=== PATIENT | female | born 1965 | race Caucasian/White ===

== ENCOUNTER 2019-08-09 09:11 | Outpatient (CLI) | payer OTHER, SELFPAY ==
--- NOTE | ~2019-08-09 | MM_ITS ---
EXAMINATION: MM screening gerardo BI w kishore HISTORY: Screening mammogram TECHNIQUE: Craniocaudal and mediolateral oblique 3-D tomosynthesis images were obtained and synthetic 2-D images were generated. CAD analysis was submitted and interpreted. COMPARISON: Comparison to multiple prior studies sequentially, with oldest reviewed study dated 09/02. BREAST PARENCHYMAL COMPOSITION: There are scattered areas of fibroglandular density. FINDINGS: There is no evidence of suspicious mass, calcification, or architectural distortion to sugg est malignancy in either breast. There has been no suspicious interval change. IMPRESSION: 1. No mammographic evidence of malignancy. 2. Recommend routine screening mammography in one year. BI-RADS Category 1: Negative Reviewed, dictated and finalized at location A. CHARGER
== END 2019-08-09 09:12 | disposition home or self-care (01) ==
PROVIDERS: PCP Family Medicine; Visit Provider Obstetrics & Gynecology
DX: Z12.31 Encounter for screening mammogram for malignant neoplasm of breast (principal)
CPT/HCPCS: 77063; 77067

== ENCOUNTER 2020-04-06 00:45 | Outpatient (CLI) | payer OTHER, SELFPAY ==
[2020-04-06 18:04] LABS: SARS-CoV-2 RNA PCR Negative
== END 2020-04-06 00:46 | disposition home or self-care (01) ==
LOC: ANHCOVIDDT 00:45
PROVIDERS: Visit Provider Internal Medicine Gastroenterology
DX: Z01.812 Encounter for preprocedural laboratory examination (principal); Z20.828 Contact with and (suspected) exposure to other viral communicable diseases
CPT/HCPCS: 87635; C9803; U0003

== ENCOUNTER 2020-04-09 00:41 | Day surgery (SDC) | payer OTHER, SELFPAY ==
[2020-04-01 13:12] VITALS: BMI 25.7
[2020-04-09 06:28] VITALS: BP 127/75; PULSE 90; RESP 14; TEMP 36.9; O2SAT 100; BMI 27.0
[2020-04-09] MEDS: LACTATED RINGERS 1,000 ML 150 ML IV CONT (06:42)
--- NOTE | 2020-04-09 07:03 | PM.HPGS ---
History of Present Illness History of Present Illness Consent: Risks, benefits, and alternatives have been discussed and questions answered. Patient agrees to proceed with procedure. Chief complaint: epigastric pain Narrative: Chey Llamas is a 54 year old female With epigastric pain. It radiates to the right upper quadrant. It has been intermittent but now for the past 2 weeks almost steady. Eating briefly helps. She had multiple ulcers a few years ago. [facility] Past Medical History Medical History (Updated 04/09/20 @ 07:23 by Rico Anderson MD) Asthma DVT (deep venous thrombosis) GERD (gastroesophageal reflux disease) BEAU (obstructive sleep apnea) Osteoarthritis Surgical History Surgical History History of spinal fusion neck and back Family History Family History Mother Family history of malignant neoplasm of breast in first degree relative Social History Social History Smoking packs per day: 0.5 Smoking cigarettes per day: 10.0 Years smoked: 30 Smoking pack-years: 15.00 Smoking status: Current every day smoker Tobacco type: cigarettes Second hand tobacco smoke exposure: Yes Alcohol intake: never Substance use: never Substance use type: does not use Living arrangements: with family Spiritual care concerns: No Meds Home Medications and Allergies Home Medications Medication Instructions Recorded Confirmed Type albuterol sulfate 2 puff INHALATION Q3-6H PRN 05/19/19 04/09/20 History bupropion HCl 300 mg PO DAILY 05/19/19 04/09/20 History dicyclomine 20 mg PO TID PRN 05/19/19 04/09/20 History ergocalciferol (vitamin D2) 1 unit PO WEEKLY 05/19/19 04/09/20 History omeprazole 20 mg PO AC 05/19/19 04/09/20 History valacyclovir 1,000 mg PO DAILY PRN 05/19/19 04/09/20 History Allergies Allergy/AdvReac Type Severity Reaction Status Date / Time Cephalosporins Allergy Mild Hives Verified 04/09/20 06:27 Vital Signs Vital Signs - 24 hr 04/09/20 06:28 Temperature 36.9 C Pulse Rate 90 Respiratory Rate 14 Blood Pressure 127/75 Pulse Oximetry 100 Exam Resp: Auscultation: clear to auscultation bilaterally Cardio: Rate: regular rate Rhythm: regular rhythm GI: GI Palp: Yes Soft to palpation and No Tenderness to palpation present (GI) Assessment and Plan Assessment and plan (1) Epigastric pain: Code(s): R10.13 - Epigastric pain Status: Acute Assessment and Plan: EGD with possible biopsy or dilatation or cautery.
--- NOTE | 2020-04-09 07:11 | WPDANESEPPF ---
Anes - Initial Pre Proc Eval Procedure: Operation Date: 04/09/20 07:30 Proposed Procedures p Esophagogastroduodenoscopy - Rico Anderson MD Date/Time: 04/09/20 07:11 Surgeon: Rico Anderson MD Pre Op Diagnosis: epigastric pain Patient Data Age: 54 Gender: F Height: 5 ft 3 in Weight: 69.3 kg Last Vital Signs Temp 98.4 F 04/09/20 06:28 Pulse 90 04/09/20 06:28 Resp 14 04/09/20 06:28 BP 127/75 04/09/20 06:28 Pulse Ox 100 04/09/20 06:28 Allergies Allergy/AdvReac Type Severity Reaction Status Date / Time Cephalosporins Allergy Mild Hives Verified 04/09/20 06:27 Home Medications Medication Instructions Recorded Confirmed Type albuterol sulfate 2 puff INHALATION Q3-6H PRN 05/19/19 04/09/20 History bupropion HCl 300 mg PO DAILY 05/19/19 04/09/20 History dicyclomine 20 mg PO TID PRN 05/19/19 04/09/20 History ergocalciferol (vitamin D2) 1 unit PO WEEKLY 05/19/19 04/09/20 History omeprazole 20 mg PO AC 05/19/19 04/09/20 History valacyclovir 1,000 mg PO DAILY PRN 05/19/19 04/09/20 History Patient hx anesthesia problems: none Family hx anesthesia problems: none PMFSH Past Medical History Medical History Asthma DVT (deep venous thrombosis) GERD (gastroesophageal reflux disease) BEAU (obstructive sleep apnea) Osteoarthritis Surgical History Surgical History (Updated 05/24/19 @ 08:28 by Lee Call DO) History of spinal fusion neck and back Family History Family History Mother Family history of malignant neoplasm of breast in first degree relative Social History Social History Smoking packs per day: 0.5 Smoking cigarettes per day: 10.0 Years smoked: 30 Smoking pack-years: 15.00 Smoking status: Current every day smoker Tobacco type: cigarettes Second hand tobacco smoke exposure: Yes Alcohol intake: never Substance use: never Substance use type: does not use Living arrangements: with family Spiritual care concerns: No Anes - Eval Final PreProcedure Day of Procedure 04/09/20 07:11 Patient weight: normal Heart: regular rate and rhythm Lungs: clear to auscultation Airway: Mallampati scale class II Neurological: alert and oriented Last oral intake: >/= 8 hours ASA classification: III Emergent: no Anesthetic plan: proceed Anesthesia type and monitoring: general GIVS and standard monitoring Informed Consent: The patient's anesthetic plan and its attendant risks and benefits were discussed with the patient/family/POA. Questions were solicited and answers provided to the satisfaction of the patient/family/POA.
[2020-04-09 07:37] VITALS: BP 94/48; PULSE 79; RESP 16; O2SAT 97
[2020-04-09 07:47] VITALS: BP 87/49; PULSE 74; RESP 16; O2SAT 99
[2020-04-09 07:57] VITALS: BP 99/57; PULSE 76; RESP 20; O2SAT 100
== END 2020-04-09 08:21 | disposition home or self-care (01) ==
PROVIDERS: Visit Provider Internal Medicine Gastroenterology
PROC: 0DJ08ZZ Inspection of Upper Intestinal Tract, Via Natural or Artificial Opening Endoscopic (ICD-10-PCS; CPT 43235; principal; 2020-04-09 07:30)
DX: K21.9 Gastro-esophageal reflux disease without esophagitis (principal); J45.909 Unspecified asthma, uncomplicated; G47.33 Obstructive sleep apnea (adult) (pediatric); Z86.718 Personal history of other venous thrombosis and embolism; Z98.1 Arthrodesis status; F17.210 Nicotine dependence, cigarettes, uncomplicated
CPT/HCPCS: 43239; 87081; J2704; J7120

== ENCOUNTER 2023-03-12 08:56 | Outpatient (CLI) | payer OTHER, SELFPAY ==
[2023-03-12 09:28] LABS: Basophils Absolute Auto 0.06 K/mm3 (0.00-0.10); Eosinophils Absolute Auto 0.31 K/mm3 (0.02-0.50); Eosinophils Percent Auto 4.9 % (1.0-6.0); Hematocrit 39.5 % (35.0-49.0); Hemoglobin 13.2 g/dL (12.0-15.0); Immature Granulocyte Absolute 0.02 K/mm3 (0.00-0.00); Immature Granulocyte Percent A 0.3 % (0.0-0.0); Lymphocytes Absolute Auto 2.08 K/mm3 (1.10-4.50); Lymphocytes Percent Auto 33.2 % (18.0-42.0); Mean Corpuscular HGB Conc 33.4 g/dL (32.0-36.0); Mean Corpuscular Hemoglobin 31.2 pg (27.0-31.0); Mean Corpuscular Volume 93.4 fL (78.0-102.0); Mean Platelet Volume 10.7 fl (9.2-11.8); Monocytes Absolute Auto 0.53 K/mm3 (0.10-0.90); Monocytes Percent Auto 8.5 % (2.0-11.0); Neutrophils Absolute Auto 3.3 K/mm3 (1.7-7.2); Neutrophils Percent Auto 52.1 % (50.0-70.0); Platelet Count Result 288 K/mm3 (150-420); Red Blood Count 4.23 M/mm3 (4.20-5.40); Red Cell Distribution Width 13.2 % (11.6-14.4); White Blood Count 6.3 K/mm3 (4.8-10.8)
[2023-03-12 09:29] LABS: Appearance Urine Clear (Clear); Bilirubin Urine Negative (Negative); Blood Urine 1+ (Negative); Color Urine Yellow (Yellow); Glucose Urine UA Negative (Negative); Ketones Urine Negative (Negative); Leukocyte Esterase Ur Negative LEU/UL (Negative); Nitrate Urine Negative (Negative); Protein Urine Trace (Negative); Urobilinogen Urine 0.2 mg/dL (0.2-1.0)
[2023-03-12 09:43] LABS: Add Urine Microscopic? YES; Bacteria Urine Trace /hpf; Mucus Urine Few /lpf; Squamous Epithelial Cell Urine Few /hpf (Few); WBC Urine None seen /hpf (0-3)
[2023-03-12 09:50] LABS: Alanine Aminotransferase 15 U/L (14-59); Albumin Level 3.9 g/dL (3.4-5.0); Alkaline Phosphatase 107 U/L (46-116); Anion Gap 7 mmol/L (8-16); Aspartate Amino Transferase 13 U/L (15-37); Bilirubin,Total 0.4 mg/dL (0.00-1.00); Blood Urea Nitrogen 9 mg/dL (7-18); Calcium 9.7 mg/dL (8.5-10.1); Carbon Dioxide 31 mmol/L (21-32); Chloride 105 mmol/L (98-108); Cholesterol 241 mg/dL (0-200); Estimated Glomerular Filt Rate > 60; Glucose 91 mg/dL (70-99); HDL Direct 69 mg/dL (40-60); LDL Cholesterol Calculated 145 mg/dL (<130); Osmolality Calculated 294 mOsm/kg (285-295); Potassium 4.5 mmol/L (3.5-5.1); Sodium 143 mmol/L (136-145); Thyroid Stimulating Hormone 3.71 uIU/mL (0.36-3.74); Total Protein 7.2 g/dL (6.4-8.2); Triglycerides 135 mg/dL (0-150)
== END 2023-03-12 08:57 | disposition home or self-care (01) ==
LOC: CHSLAB 08:58
PROVIDERS: PCP Internal Medicine; Visit Provider Internal Medicine
DX: Z00.00 Encounter for general adult medical examination without abnormal findings (principal); E78.5 Hyperlipidemia, unspecified; M81.0 Age-related osteoporosis without current pathological fracture
CPT/HCPCS: 36415; 80053; 80061; 81001; 84443; 85025

== ENCOUNTER 2023-04-13 10:34 | Outpatient (CLI) | payer OTHER, SELFPAY ==
[2023-04-13 11:09] LABS: Appearance Urine Clear (Clear); Bilirubin Urine Negative (Negative); Blood Urine Trace-Intact (Negative); Color Urine Yellow (Yellow); Glucose Urine UA Negative (Negative); Ketones Urine Negative (Negative); Leukocyte Esterase Ur Negative (Negative); Nitrate Urine Negative (Negative); Protein Urine Negative (Negative); Specific Grav Ur <= 1.005 (1.010-1.020); Urobilinogen Urine 0.2 mg/dL (0.2-1.0)
[2023-04-13 11:16] LABS: Add Urine Microscopic? YES; Bacteria Urine Trace /hpf; Squamous Epithelial Cell Urine Few /hpf (Few); WBC Urine 0-3 /hpf (0-3)
[2023-04-16 11:59] LABS: Vitamin D 25 Hydroxy 20 ng/mL (30-100)
[2023-04-17 11:10] LABS: Vitamin D 1,25 (OH)2 Total 37 pg/mL (18-72); Vitamin D2 1,25 (OH)2 <8 pg/mL; Vitamin D3 1,25 (OH)2 37 pg/mL
[2023-04-17 19:04] LABS: Parathyroid Intact 60 pg/mL (14-64)
== END 2023-04-13 10:35 | disposition home or self-care (01) ==
LOC: CHSLAB 10:36
PROVIDERS: PCP Internal Medicine; Visit Provider Internal Medicine
DX: E55.9 Vitamin D deficiency, unspecified (principal); R31.29 Other microscopic hematuria
CPT/HCPCS: 36415; 81001; 82306; 82652; 83970; 88112

== ENCOUNTER 2023-04-14 09:47 | Outpatient (CLI) | payer OTHER, SELFPAY ==
--- NOTE | ~2023-04-14 | CT_ITS ---
EXAMINATION: CT abdomen pelvis wo con DATE: 04/14/2023 10:07 INDICATION: Chronic abdominal pain. Hematuria. TECHNIQUE: Computed tomography (CT) of the abdomen and pelvis was performed without intravenous contr ast. Automated exposure control and iterative reconstruction technique were employed. The dose-length product was 158.80 mGy-cm. COMPARISON: CT abdomen and pelvis 11/30/2018 FINDINGS: The visualized portions of the lung bases are clear without pneumonia or pleural effusion. The heart size is normal. No pericardial effusion. The liver and spleen are normal. There are changes of cholecystectomy. The pancreas, adrenal glands, and kidneys are normal. There is no urolithiasis. There are no dilated loops of bowel. The appendix is normal. Aortic atherosclerosis is noted. There a re no pathologically enlarged lymph nodes. There is no free intraperitoneal fluid. There is internal fixation of right femur. There is mild lumbar spondylosis. IMPRESSION: 1. No urolithiasis. Reviewed, dictated and finalized at location E. IMPRESSION: 1. No urolithiasis.
== END 2023-04-14 09:48 | disposition home or self-care (01) ==
LOC: CHSIMG 09:49
PROVIDERS: PCP Internal Medicine; Visit Provider Internal Medicine
DX: R31.29 Other microscopic hematuria (principal)
CPT/HCPCS: 74176

== ENCOUNTER 2023-04-28 12:20 | Outpatient (CLI) | payer OTHER, SELFPAY ==
--- NOTE | ~2023-04-28 | MMUS_ITS ---
EXAMINATION: MM diagnostic gerardo BI w kishore, US breast LT limited HISTORY: Bloody left nipple discharge TECHNIQUE: Additional 3-D tomosynthesis images of the breasts were performed and synthetic 2-D images were generated. CAD analysis was submitted and interpreted. High resolution limited left breast ultr asound was performed. COMPARISON: 08/09/2019, 10/24/2014, 09/02/2012, 08/30/2008 BREAST PARENCHYMAL COMPOSITION: There are scattered areas of fibroglandular density. FINDINGS: MAMMOGRAPHIC FINDINGS: No suspicious mass, calcification, or architectural distortion are identified in either breast to sug gest malignancy. There has been no suspicious interval change. No mammographic correlate is identifie d in the left breast for the patient's nipple discharge. ULTRASOUND: No sonographic correlate is identified for the patient's reported left nipple discharge. IMPRESSION: 1. No specific mammographic or sonographic correlate is identified for the patient's left nipple disc harge. Consider surgical evaluation. Continued follow-up physical examination is recommended. 2. Recommend routine screening mammography in one year. BI-RADS Category 1: Negative Reviewed, dictated and finalized at location A. [employer] IMPRESSION: 1. No specific mammographic or sonographic correlate is identified for the tyler ent's left nipple discharge. Consider surgical evaluation. Continued follow-up physical examination is recommended. 2. Recommend routine screening mammography in one year. BI-RADS Category 1: Negative
== END 2023-04-28 12:21 | disposition home or self-care (01) ==
LOC: ANHIMG 12:21
PROVIDERS: PCP Internal Medicine; Visit Provider Nurse Practitioner
DX: N64.52 Nipple discharge (principal)
CPT/HCPCS: 76642; 77062; 77066; G0279

== ENCOUNTER 2023-08-04 15:11 | Emergency (ER) | payer OTHER, SELFPAY ==
[2023-08-04 15:23] VITALS: BP 150/70; PULSE 110; RESP 18; TEMP 37.1; O2SAT 97
[2023-08-04 15:24] VITALS: BP 150/70; PULSE 110; RESP 18; TEMP 37.1; O2SAT 97
--- NOTE | 2023-08-04 15:26 | ED.URI ---
HPI - URI/Sore Throat General Chief Complaint: Upper Respiratory Infection Stated Complaint: throat discomfort Time Seen by Provider: 08/04/23 15:26 History of Present Illness HPI Narrative: 58-year-old female presented for complaint of sore throat x6 days. States she went to the ER at that time, was told she had a viral infection. Since then she gargled warm salt water and it improved for one day, but worsened again yesterday. Endorses painful swallow but is able to maintain secretions. Right side of throat is more painful than left. Endorses nausea and body aches. Not taking anything for pain. Denies sob, wheezing, vomiting or lethargy. Says she has been to the ER x2 in the past 2 weeks and was told both times she had viral infections. No pcp. Related Data Home Medications Medication Instructions Recorded Confirmed bupropion HCl 300 mg 24 hr tablet, 300 mg PO DAILY 05/19/19 04/09/20 extended release ergocalciferol (vitamin D2) 1,250 1 unit PO WEEKLY 05/19/19 04/09/20 mcg (50,000 unit) capsule dextroamphetamine-amphetamine 20 08/04/23 mg tablet Allergies Allergy/AdvReac Type Severity Reaction Status Date / Time Cephalosporins Allergy Mild Hives Verified 08/04/23 15:23 Review of Systems Review of Systems: CONSTITUTIONAL: reports body aches, fever, chills EYES: Denies visual changes, redness, or discharge. ENT: Reports sore throat denies rhinorrhea, congestion, or otalgia. CARDIOVASCULAR: Denies chest pain, palpitations, or edema. RESPIRATORY: Denies dyspnea. GASTROINTESTINAL: Denies abdominal pain, nausea, vomiting, or diarrhea. SKIN: Denies rash, itching, or wounds. MUSCULOSKELETAL: Denies back pain, joint pain, or myalgia. NEUROLOGIC: Denies headache PMFSH Past Medical History Medical History Asthma DVT (deep venous thrombosis) GERD (gastroesophageal reflux disease) BEAU (obstructive sleep apnea) Osteoarthritis Surgical History Surgical History History of spinal fusion neck and back Family History Family History Mother Family history of malignant neoplasm of breast in first degree relative Social History Social History Smoking packs per day: 0.5 Smoking cigarettes per day: 10.0 Years smoked: 30 Smoking pack-years: 15.00 Smoking status: Current every day smoker Tobacco type: cigarettes Second hand tobacco smoke exposure: Yes Alcohol intake: never Substance use: never Substance use type: does not use Living arrangements: with family Spiritual care concerns: No Exam Narrative: GENERAL: mildly Ill-appearing, no acute distress. EYES: conjunctivae clear ENT: Mucous membranes moist. TMs pearly cardona with normal light reflex bilaterally; no tragal tenderness. Oropharynx erythematous Tonsils enlarged 2+ and without exudate. hoarse voice. No drooling, no trismus, uvula midline. No tripod positioning, hot potato voice, or soft palate swelling. NECK: Supple. No lymphadenopathy CHEST: Clear to auscultation, breath sounds equal. No respiratory distress, speaks in full sentences. HEART: Regular rate and rhythm. No murmur heard. SKIN: Warm, dry, no rash. NEURO: Alert and oriented x3. Talkative Course Course Emergency Course: Patient is aware of diagnosis, understands and agrees to treatment plan. Anticipatory guidance given. Patient agrees to follow-up as directed and is aware of reasons to seek care at the emergency department. Portions of this record may have been created with voice recognition software Level of Care: Express Care Visit Vital Signs Vital signs: Vital Signs Temperature 98.8 F 08/04/23 15:23 Pulse Rate 110 H 08/04/23 15:23 Respiratory Rate 18 08/04/23 15:23 Blood Pressure 150/70 H 08/04/23 15:23 Pulse
[2023-08-04] MEDS: methylPREDNISolone SOD SUCC 125 MG VIAL IM (15:44)
== END 2023-08-04 16:05 | disposition home or self-care (01) ==
PROVIDERS: Emergency Provider Nurse Practitioner Family
DX: J02.0 Streptococcal pharyngitis (principal); F17.210 Nicotine dependence, cigarettes, uncomplicated; J45.909 Unspecified asthma, uncomplicated; K21.9 Gastro-esophageal reflux disease without esophagitis; M19.90 Unspecified osteoarthritis, unspecified site; Z86.718 Personal history of other venous thrombosis and embolism
CPT/HCPCS: 87880; 96372; 99213; G0463; J2930

== ENCOUNTER 2023-10-19 17:08 | Emergency (ER) | payer OTHER, SELFPAY ==
--- NOTE | ~2023-10-19 | XR_ITS ---
EXAM: XR finger 2nd RT min 2V DATE: 10/19/2023 17:52 HISTORY: laceration- smashed right 2nd finger . COMPARISON: None available. FINDINGS: Normal mineralization. Minimally comminuted fracture of the tuft of the left second distal phalange. No lytic or blastic lesion. Mild scattered degenerative changes. No erosion or periosteal change. Soft tissues within normal limits. IMPRESSION: Minimally comminuted fracture of the tuft of the left second distal phalange. Reviewed, dictated and finalized at location K.
[2023-10-19 17:17] VITALS: BP 152/90; PULSE 82; RESP 18; TEMP 36; O2SAT 98
--- NOTE | 2023-10-19 17:20 | ED.WOUNDLAC ---
HPI - Wound/Laceration General Chief Complaint: Wound/Laceration Stated Complaint: Injured Finger Time Seen by Provider: 10/19/23 17:20 Source: patient Mode of arrival: ambulatory Limitations: no limitations History of Present Illness HPI narrative: Chey is a 58-year-old female patient presenting to the clinic today with complaints right index finger injury. She reports she was placing an umbrella into a glass patio table and the glass cut her finger and the finger got smashed in between the glass and the umbrella. Has a 2 cm laceration to the distal tip of the finger without involvement of the nail. Tetanus is up-to-date per patient Related Data Home Medications Medication Instructions Recorded Confirmed bupropion HCl 300 mg 24 hr tablet, 300 mg PO DAILY 05/19/19 10/19/23 extended release ergocalciferol (vitamin D2) 1,250 1 unit PO WEEKLY 05/19/19 10/19/23 mcg (50,000 unit) capsule dextroamphetamine-amphetamine 20 20 mg PO BID 10/18/23 10/19/23 mg tablet Allergies Allergy/AdvReac Type Severity Reaction Status Date / Time Cephalosporins AdvReac Mild Hives Verified 10/19/23 17:24 Review of Systems Review of Systems: Pertinent positives per HPI. Patient denies any fever, chills, rash, headache, visual changes, dizziness, cough, runny nose, sore throat, shortness of breath, chest pain, palpitations, nausea, vomiting, diarrhea, constipation, abdominal pain, or any urinary issues. [facility] Past Medical History Medical History (Updated 10/19/23 @ 18:16 by Karan Irving APRN) Asthma DVT (deep venous thrombosis) GERD (gastroesophageal reflux disease) BEAU (obstructive sleep apnea) Osteoarthritis Surgical History Surgical History History of spinal fusion neck and back Family History Family History Mother Family history of malignant neoplasm of breast in first degree relative Social History Social History Smoking packs per day: 0.5 Smoking cigarettes per day: 10.0 Years smoked: 30 Smoking pack-years: 15.00 Smoking status: Current every day smoker Tobacco type: cigarettes Second hand tobacco smoke exposure: Yes Alcohol intake: never Substance use: never Substance use type: does not use Do You Feel Safe in your Home?: Yes Lack of Transportation: No Lack of Food: Sometimes True Current Housing: I Do Not Have Housing Concerned About Future Housing: No Difficulty Paying Gas/Electric Bills: No Difficulty Paying for Meds: No Currently Unemployed: No Education: High School Diploma/GED Difficulty w/ Childcare or Family Care: No Living arrangements: with family Spiritual care concerns: No Comments At the time of my signature, I reviewed and agree with the nursing past medical, surgical, social, and family history. There is no relevant family history pertinent to the patient complaint. Exam Narrative: General: Well-developed, well nourished, in no apparent distress Head: Normocephalic, atraumatic. Cardio: Regular rate and rhythm, s1 and s2 normal, no murmur appreciated. Resp: Clear to auscultation bilaterally, no rhonchi, rales, wheezing or rubs. Integumentary: [place], warm, and dry, 2 cm laceration to the distal volar aspect of right index without nail involvement Course Course Emergency Course: Portions of this record may have been created with voice recognition software. Level of Care: Express Care Visit Vital Signs Vital signs: Vital Signs Temperature 36.0 C L 10/19/23 17:17 Pulse Rate 82 10/19/23 17:17 Respiratory Rate 18 10/19/23 17:17 Blood Pressure 152/90 H 10/19/23 17:17 Pulse Oximetry 98 10/19/23 17:17 Oxygen Delivery Room Air 10/19/23 17:17 Temperature 36.0 C L 10/19/23 17:17 Pulse Rate 82 10/19/23 17:17 Respiratory Ra
== END 2023-10-19 18:28 | disposition home or self-care (01) ==
PROVIDERS: Emergency Provider Nurse Practitioner Family
DX: S61.211A Laceration without foreign body of left index finger without damage to nail, initial encounter (principal); W25.XXXA Contact with sharp glass, initial encounter; J45.909 Unspecified asthma, uncomplicated; K21.9 Gastro-esophageal reflux disease without esophagitis; G47.33 Obstructive sleep apnea (adult) (pediatric); F17.210 Nicotine dependence, cigarettes, uncomplicated
CPT/HCPCS: 12001; 73140; 99214; G0463

== ENCOUNTER 2023-10-29 17:24 | Emergency (ER) | payer OTHER, SELFPAY ==
[2023-10-29 17:35] VITALS: BP 137/79; PULSE 94; RESP 18; TEMP 36.3; O2SAT 100
--- NOTE | 2023-10-29 17:51 | ED.SKABFB ---
HPI - Skin/Abscess/Foreign Bdy General Chief complaint: Skin/Abscess/Foreign Body Stated complaint: remove stitches Time Seen by Provider: 10/29/23 17:27 Source: patient Mode of arrival: ambulatory Limitations: no limitations History of Present Illness HPI narrative: Chey is a 58-year-old female patient presenting to the clinic today for suture removal-she has a well-healing laceration to the right index finger. She was supposed to follow-up with PCP and Dr. Valdez but she has not done so yet. Had a tuft fracture with laceration that I saw her for 10 days ago. Related Data Home Medications Medication Instructions Recorded Confirmed bupropion HCl 300 mg 24 hr tablet, 300 mg PO DAILY 05/19/19 10/29/23 extended release ergocalciferol (vitamin D2) 1,250 1 unit PO WEEKLY 05/19/19 10/29/23 mcg (50,000 unit) capsule dextroamphetamine-amphetamine 20 20 mg PO BID 10/18/23 10/29/23 mg tablet Allergies Allergy/AdvReac Type Severity Reaction Status Date / Time Cephalosporins AdvReac Mild Hives Verified 10/29/23 17:45 Review of Systems Review of Systems: Pertinent positives per HPI. Patient denies any fever, chills, rash, headache, visual changes, dizziness, cough, runny nose, sore throat, shortness of breath, chest pain, palpitations, nausea, vomiting, diarrhea, constipation, abdominal pain, or any urinary issues. [facility] Past Medical History Medical History Asthma DVT (deep venous thrombosis) GERD (gastroesophageal reflux disease) BEAU (obstructive sleep apnea) Osteoarthritis Surgical History Surgical History History of spinal fusion neck and back Family History Family History Mother Family history of malignant neoplasm of breast in first degree relative Social History Social History Smoking packs per day: 0.5 Smoking cigarettes per day: 10.0 Years smoked: 30 Smoking pack-years: 15.00 Smoking status: Current every day smoker Tobacco type: cigarettes Second hand tobacco smoke exposure: Yes Alcohol intake: never Substance use: never Substance use type: does not use Do You Feel Safe in your Home?: Yes Lack of Transportation: No Lack of Food: Sometimes True Current Housing: I Do Not Have Housing Concerned About Future Housing: No Difficulty Paying Gas/Electric Bills: No Difficulty Paying for Meds: No Currently Unemployed: No Education: High School Diploma/GED Difficulty w/ Childcare or Family Care: No Living arrangements: with family Spiritual care concerns: No Comments At the time of my signature, I reviewed and agree with the nursing past medical, surgical, social, and family history. There is no relevant family history pertinent to the patient complaint. Exam Narrative: General: Well-developed, well nourished, in no apparent distress Head: Normocephalic, atraumatic. Cardio: Regular rate and rhythm, s1 and s2 normal, no murmur appreciated. Resp: Clear to auscultation bilaterally, no rhonchi, rales, wheezing or rubs. Integumentary: [place], warm, and dry, well healing laceration to the right index finger Course Course Emergency Course: Portions of this record may have been created with voice recognition software. Level of Care: Express Care Visit Vital Signs Vital signs: Vital Signs Temperature 36.3 C L 10/29/23 17:35 Pulse Rate 94 10/29/23 17:35 Respiratory Rate 18 10/29/23 17:35 Blood Pressure 137/79 10/29/23 17:35 Pulse Oximetry 100 10/29/23 17:35 Oxygen Delivery Room Air 10/29/23 17:35 Temperature 36.3 C L 10/29/23 17:35 Pulse Rate 94 10/29/23 17:35 Respiratory Rate 18 10/29/23 17:35 Blood Pressure 137/79 10/29/23 17:35 Pulse Oximetry 100 10/29/23 17:35 Oxy
== END 2023-10-29 17:53 | disposition home or self-care (01) ==
PROVIDERS: Emergency Provider Nurse Practitioner Family
DX: S61.210D Laceration without foreign body of right index finger without damage to nail, subsequent encounter (principal); X58.XXXD Exposure to other specified factors, subsequent encounter; J45.909 Unspecified asthma, uncomplicated; K21.9 Gastro-esophageal reflux disease without esophagitis; M19.90 Unspecified osteoarthritis, unspecified site; Z86.718 Personal history of other venous thrombosis and embolism; F17.210 Nicotine dependence, cigarettes, uncomplicated
CPT/HCPCS: 99211; G0463

== ENCOUNTER 2023-11-02 10:32 | Outpatient (CLI) | payer OTHER, SELFPAY ==
--- NOTE | ~2023-11-02 | MR_ITS ---
MR breast BI wo/w con 11/07/2023 16:40 CDT INDICATION: Left bloody nipple discharge TECHNIQUE: MRI of the breasts perform using standard protocol pre-and post IV contrast with the follo wing sequences: Axial T2 STIR, axial T1, axial vibrant T1 with fat suppression precontrast and multip hasic postcontrast. 14 cc of MultiHance administered intravenously COMPARISON: Diagnostic mammogram and ultrasound dated 04/28/2023 FINDINGS: There are no abnormalities on the precontrast sequences. There is minimal background parenc hymal enhancement. No enhancing lesions following contrast administration. No areas of enhancement meeting threshold criteria on CAD analysis. No evidence of signal abnormalities in the axillary or i nternal mammary node distributions. LEFT BREAST: No signal abnormalities on precontrast sequences. There is minimal background parenchym al enhancement. No enhancing lesions following contrast administration. No areas of enhancement me eting threshold criteria on CAD analysis. No evidence of signal abnormalities in the axillary or in ternal mammary node distributions.] IMPRESSION: 1: Right breast: Negative. No evidence of malignancy. BI-RADS category 1. Recommend annual mammo graphy follow-up. 2: Left breast: Negative. No evidence of malignancy. BI-RADS category 1. Recommend annual mammogr aphy follow-up. Reviewed, dictated and finalized at location A. IMPRESSION: 1: Right breast: Negative. No evidence of malignancy. BI-RADS category 1. Recommend annual mammography follow-up. 2: Left breast: Negative. No evidence of malignancy. BI-RADS category 1. Re commend annual mammography follow-up.
== END 2023-11-02 10:33 | disposition home or self-care (01) ==
PROVIDERS: Visit Provider Surgery
DX: N64.52 Nipple discharge (principal)
CPT/HCPCS: 77049; A9577; C8908

== ENCOUNTER 2024-03-26 13:52 | Emergency (ER) | payer OTHER, SELFPAY ==
[2024-03-26 14:01] VITALS: BP 117/64; PULSE 95; RESP 18; TEMP 36.7; O2SAT 100
[2024-03-26 14:27] LABS: EDSTREPNEGPOS1 Negative (Negative)
--- NOTE | 2024-03-26 17:49 | ED_ITS ---
HPI - URI/Sore Throat General Chief Complaint: Upper Respiratory Infection Stated Complaint: sore throat Time Seen by Provider: 03/26/24 14:07 Source: patient and RN notes reviewed Mode of arrival: ambulatory Limitations: no limitations History of Present Illness HPI Narrative: Patient presents today complaining of 4 day history of right-sided sore throat, rhinorrhea, headache. Denies fever, cough, or any additional symptoms. She has tried some Tylenol for pain with some mild relief. She also tried some clindamycin of a family members prescription. Took 2 pills yesterday and 1 today. Related Data Home Medications Medication Instructions Recorded Confirmed bupropion HCl 300 mg 24 hr tablet, 300 mg PO DAILY 05/19/19 03/26/24 extended release ergocalciferol (vitamin D2) 1,250 1 unit PO WEEKLY 05/19/19 03/26/24 mcg (50,000 unit) capsule dextroamphetamine-amphetamine 20 20 mg PO BID 10/18/23 03/26/24 mg tablet Allergies Allergy/AdvReac Type Severity Reaction Status Date / Time Cephalosporins Allergy Mild Hives Verified 03/26/24 14:05 Review of Systems Review of Systems: CONSTITUTIONAL: Denies body aches, fever, chills, or sweats. EYES: Denies visual changes, redness, or discharge. ENT: Denies congestion, or otalgia.+ sore throat, rhinorrhea CARDIOVASCULAR: Denies chest pain, palpitations, or edema. RESPIRATORY: Denies cough or dyspnea. GASTROINTESTINAL: Denies abdominal pain, nausea, vomiting, or diarrhea. GENITOURINARY: Denies dysuria or hematuria. SKIN: Denies rash, itching, or wounds. MUSCULOSKELETAL: Denies back pain, joint pain, or myalgia. NEUROLOGIC: Denies numbness, tingling, or weakness.+ headache PSYCH: Denies depression or anxiety. [facility], LAT[facility] Past Medical History Medical History (Updated 03/26/24 @ 17:52 by Viki Wagner, BRY, ) Asthma COPD (chronic obstructive pulmonary disease) DVT (deep venous thrombosis) GERD (gastroesophageal reflux disease) History of DVT (deep vein thrombosis) BEAU (obstructive sleep apnea) Osteoarthritis Unspecified asthma Surgical History Surgical History (Updated 03/26/24 @ 17:52 by Viki Wagner, BRY, ) H/O: hysterectomy History of cholecystectomy History of spinal fusion neck and back Family History Family History Mother Family history of malignant neoplasm of breast in first degree relative Social History Social History Smoking packs per day: 0.5 Smoking cigarettes per day: 10.0 Years smoked: 30 Smoking pack-years: 15.00 Smoking status: Current every day smoker Tobacco type: cigarettes Second hand tobacco smoke exposure: Yes Alcohol intake: never Substance use: never Substance use type: does not use Do You Feel Safe in your Home?: Yes Lack of Transportation: No Lack of Food: Sometimes True Current Housing: I Do Not Have Housing Concerned About Future Housing: No Difficulty Paying Gas/Electric Bills: No Difficulty Paying for Meds: No Currently Unemployed: No Education: High School Diploma/GED Difficulty w/ Childcare or Family Care: No Living arrangements: with family Spiritual care concerns: No Comments At time of signature, I have reviewed and agree with nursing past medical, surgical, social and family history unless otherwise noted. Please see nursing chart for further information. There is no relevant family history pertinent to the presenting complaint Exam Narrative: GENERAL: Well-appearing, well-nourished, and in no acute distress. HEAD: Normocephalic, atraumatic. EYES: EOMI. No redness or drainage. Conjunctivae normal. ENT: Mucous membranes pink and moist. Nares clear. No rhinorrhea. TMs normal bilaterally. Throat mildly erythematous without edema or exudate. Uvula midline. NECK: Normal AROM. Supple. No lymphadenopathy. CHEST: No respiratory distress. Clear to auscultation. HEART: Regular rate and rhythm. No murmur appreciated. EXTREMITIES: Normal range of motion. No edema. SKIN: Warm, dry, no rash. Capillary refill normal. Normal skin turgor. NEURO: No focal deficits. Alert and oriented x3. Gait steady. PSYCH: Normal affect. No signs of depression or anxiety. Course Course Level of Care: Express Care Visit Vital Signs Vital signs: Vital Signs Temperature 98.0 F 03/26/24 14:01 Pulse Rate 95 03/26/24 14:01 Respiratory Rate 18 03/26/24 14:01 Blood Pressure 117/64 03/26/24 14:01 Pulse Oximetry 100 03/26/24 14:01 Oxygen Delivery Room Air 03/26/24 14:01 Temperature 98.0 F 03/26/24 14:01 Pulse Rate 95 03/26/24 14:01 Respiratory Rate 18 03/26/24 14:01 Blood Pressure 117/64 03/26/24 14:01 Pulse Oximetry 100 03/26/24 14:01 Oxygen Delivery Room Air 03/26/24 14:01 Reviewed MDM - URI/Sore Throat MDM Narrative Medical decision making narrative: Rapid strep negative. Urged patient to stop taking family members antibiotics. Culture pending. Symptoms likely viral. Discussed roiw-asy-lhyiabt medication use induration of illness. Anticipatory guidance given. Differential Diagnosis Differential diagnosis: Likely upper respiratory infection, viral infection, pharyngitis and other (Strep throat) Lab Data Attestation: I reviewed the patient's lab results. Labs: Lab Results 03/26/24 Range/Units 14:25 POC Grp A Strep Screen Negative (Negative) Critical Care Time Critical Care Time Critical Care Time: No Discharge Plan Discharge Clinical Impression: Pharyngitis Patient Disposition: Home, Self-Care Condition: Stable Instructions: Pharyngitis (ED) Additional Instructions: Your rapid strep swab was negative today at [facility]. You will be notified in a few days if the culture comes back positive for strep, and appropriate antibiotics will be called in for you at that time. Your symptoms are likely due to a viral illness, which is not treated with antibiotics. Viral symptoms can be present for up to 7-10 days. Take Tylenol or ibuprofen for fever or pain. Rest and stay hydrated. Follow up with your PCP in 7 days if symptoms are not improving. Go to the ER immediately if you have any difficulty breathing or swallowing. The [facility] physician liaison number is [phone]. Please call so they can help you find a primary care provider. Prescriptions: No Action dextroamphetamine-amphetamine 20 mg tablet 20 mg PO BID ergocalciferol (vitamin D2) 50,000 unit capsule 1 unit PO WEEKLY bupropion HCl 300 mg tablet extended release 24 hr 300 mg PO DAILY Follow-up/Referrals: PHYSICIAN,WHITE WASHER PILER [Primary Care Provider] - Time of Disposition: 14:24
== END 2024-03-26 14:28 | disposition home or self-care (01) ==
PROVIDERS: Emergency Provider Nurse Practitioner
DX: J02.9 Acute pharyngitis, unspecified (principal); F17.210 Nicotine dependence, cigarettes, uncomplicated; J44.9 Chronic obstructive pulmonary disease, unspecified; K21.9 Gastro-esophageal reflux disease without esophagitis; M19.90 Unspecified osteoarthritis, unspecified site; Z86.718 Personal history of other venous thrombosis and embolism
CPT/HCPCS: 87081; 87880; 99213; G0463

== ENCOUNTER 2025-03-24 12:31 | Emergency (ER) | payer OTHER, SELFPAY ==
--- OUTSIDE RECORDS SUMMARY | 2025-03-24 12:34 | XMS_ITS | Clinical Summary ---
Author Organization [facility] Address [address] [address] Phone Care Team Providers Care Sales And Marketing Intern Name Role Phone Unavailable Primary Care Provider Unavailabl e Social History Tobacco Use Types Packs/Day Years Used Date Smoking Tobacco: Never Assessed Comments Unknown Sex and Gender Information Value Date Recorded Sex Assigned at Not on file Legal Sex Female 2:29 PM CDT Gender Identity Not on file Sexual Orientation Not on file Plan of Treatment Health Maintenance Due Date Last Done Comments Hepatitis C Virus (HCV) Screening 1965 Mammogram 1965 TdaP Immunization 1965 Hepatitis B Immunization (1 of 3 - 19+ 3-dose series) 1984 Pap Smear 1986 Cervical Cancer Screening (CCS) 1995 HPV/Cotest 1995 Cologuard 2010 Colonoscopy 2010 Colorectal Cancer Screening 2010 Immunochemical Fecal Occult Blood 2010 Pneumococcal Immunization (5 0+ years) (1 of 1 - PCV) 2015 Zoster Immunization (1 of 2) 2015 Influenza Immunization (#1) 2025 SARS-COV-2 Immunization ( season) 2025 Respiratory Syncytial Virus (RSV) Immunization (Adult) (1 - 1-dose 75+ series) 2040 Human Papillomavirus (HPV) Immunization Aged Out No longer eligible b ased on patient's age to complete this topic Meningococcal Immunization (ACWY) Aged Out No longer eligible based on patient's age to complete this topic Rotavirus Immunization Aged Out No lo nger eligible based on patient's age to complete this topic Insurance [address] [place] [address] MEDICAID [employer]
--- OUTSIDE RECORDS SUMMARY | 2025-03-24 12:35 | XMS_ITS | Clinical Summary ---
Author Organization [facility] Address [address] [place] [address] Care Team Providers Care Licensed Plumber Name Role Phone No, Physician Primary Care Provider [phone] Allergies No known active allergies Medications buPROPion XL (WELLBUTRIN XL) 300 mg 24 hr tablet Take 1 tablet (300 mg total) by mouth daily Active zy-8-nrj-epa-fis h oil-vit D3 300-1,000-1,000 mg-mg-unit capsule Take by mouth Active dextroamphetamin e-amphetamine (ADDERALL) 20 mg tablet 1 tablet (20 mg total) Active Active Problems No known active problems Surgical History Surgery Date Site/Laterality Comments CHOLECYSTECTOMY SECTION Social History Tobacco Use Types Packs/Day Years Used Date Smoking Tobacco: Every Day Cigarettes Tobacco Cessation:Ready to Q uit: Not Asked; Counseling Given: Not Answered Comments Unknown Sex and Gender Information Value Date Recorded Sex Assigned at Not on file Legal Sex Female 3:56 PM SECURITY TECH Gender Identity Not on file Sexual Orientation Not on file Obstetrics History Last Filed Vital Signs Vital Sign Reading Time Taken Comments Blood Pressure - - Pulse - - Temperature - - Respiratory Rate - - Oxygen Saturation - - Inhaled Oxygen Concentration - - Weight 68 kg (150 lb) 06/10/2023 9:18 AM SECURITY TECH Height 160 cm (5' 3) 06/10/2023 9:18 AM SECURITY TECH Body Mass Index 26.57 06/10/2023 9:18 AM SECURITY TECH Plan of Treatment Health Maintenance Due Date Last Done Comments Breast Cancer Screening-Mammogram 1965 Cervical Cancer Screening 1965 Colon Cancer Screening-Colonoscopy 1965 Depression Screening 1965 Hepatitis C Screening 1965 Hepatitis B Screening 1983 Regular Well Visit/Exam 18-64 1983 Pneumococcal vaccine <65 (1 of 2 - PCV) 1984 Zoster Vaccine (1 of 2) 2015 Influenza Vaccine (#1) 2025 4, 06/13/2014, 05/14/2014 DTaP/Tdap/Td Vaccine (2 - Td or Tdap) 01/07/2033 Insurance Care Teams Licensed Plumber Relationship Specialty Start Date End Date No, Physician PCP - General 04/23/23
[2025-03-24 12:38] VITALS: BP 138/87; PULSE 85; RESP 18; TEMP 36.5; O2SAT 99
--- NOTE | 2025-03-24 12:51 | ED.SKABFB ---
HPI - Skin/Abscess/Foreign Bdy General Chief complaint: Skin/Abscess/Foreign Body Stated complaint: Rash/hives Source: patient Mode of arrival: ambulatory Limitations: no limitations History of Present Illness HPI narrative: 59 y/o female presented for c/o itchy red rash to right anterior hip. Onset one week. Pt is using clotrimazole, betamethasone as prescribed by pcp for yeast under right breast 03/08. Pt also applying triamcinolone from son's prescription without much improvement. Says the site started as a few red bumps and now is a larger area of red bumps. Denies pain to the rash, drainage, pain radiating to hip or legs. Denies lip, tongue, or throat swelling, shortness of breath or wheezing. Denies changes to soap, detergent, lotion, or any other exposures. No one else in the house or any contacts with similar symptoms. Related Data Home Medications ?Medication ?Instructions ?Recorded ?Confirmed ?Last Taken ?Type bupropion HCl 300 mg 24 hr tablet, 300 mg PO DAILY 05/19/19 02/14/25 04/08/20 History extended release dextroamphetamine-amphetamine 20 20 mg PO BID 10/18/23 02/14/25 Unknown History mg tablet Allergies Allergy/AdvReac Type Severity Reaction Status Date / Time Cephalosporins Allergy Mild Hives Verified 03/24/25 12:42 Review of Systems Review of Systems: CONSTITUTIONAL: Denies body aches, fever, chills, or sweats. EYES: Denies visual changes, redness, or discharge. ENT: Denies rhinorrhea, congestion CARDIOVASCULAR: Denies chest pain, palpitations, or edema. RESPIRATORY: Denies cough or dyspnea. GASTROINTESTINAL: Denies abdominal pain, nausea, vomiting, or diarrhea. SKIN: Reports rash to right anterior MUSCULOSKELETAL: Denies back pain, joint pain, or myalgia. NEUROLOGIC: Denies headache, numbness, tingling, or weakness. 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 Sibling No problems noted. Social History Social History Smoking packs per day: 0.5 Smoking cigarettes per day: 10.0 Years smoked: 30 Smoking pack-years: 15.00 Smoking status: Former smoker Tobacco type: cigarettes and e-cigarettes/vaping Second hand tobacco smoke exposure: Yes Alcohol intake: never Substance use: never Substance use type: does not use Do You Feel Safe in your Home?: Yes Lack of Transportation: No Lack of Food: Sometimes True Current Housing: I Do Not Have Housing Concerned About Future Housing: No Difficulty Paying Gas/Electric Bills: No Difficulty Paying for Meds: No Currently Unemployed: No Education: High School Diploma/GED Difficulty w/ Childcare or Family Care: No Living arrangements: with family Occupation/Education: unemployed Additional occupation/education comments: disabled Gender identity (if verbalized by the patient): Female Spiritual care concerns: No Comments At time of signature, I have reviewed and agree with nursing past medical, surgical, social and family history unless otherwise noted. Please see nursing chart for further information. There is no relevant family history pertinent to the presenting complaint Exam Narrative: GENERAL: Well-appearing EYES: conjunctivae clear, and EOMI. ENT: Mucous membranes moist. Oropharynx without edema, erythema or lesions. NECK: Supple. CHEST: Clear to auscultation. HEART: Regular rate and rhythm. SKIN: Warm, dry. Right anterior hip with approx 6cm area of light erythematous papular rash, nontender, no vesicles or drainage. NEURO: Alert and oriented x3. Course Course Emergency Course: Patient is aware of diagnosis, understands and agrees to treatment plan. Anticipatory guidance given. Patient agrees to follow-up as directed and is aware of reasons to seek care at the emergency department. Portions of this record may have been created with voice recognition software Level of Care: Express Care Visit Vital Signs Vital signs: Vital Signs Temperature 97.7 F 03/24/25 12:38 Pulse Rate 85 03/24/25 12:38 Respiratory Rate 18 03/24/25 12:38 Blood Pressure 138/87 03/24/25 12:38 Pulse Oximetry 99 03/24/25 12:38 Oxygen Delivery Room Air 03/24/25 12:38 Temperature 97.7 F 03/24/25 12:38 Pulse Rate 85 03/24/25 12:38 Respiratory Rate 18 03/24/25 12:38 Blood Pressure 138/87 03/24/25 12:38 Pulse Oximetry 99 03/24/25 12:38 Oxygen Delivery Room Air 03/24/25 12:38 Reviewed MDM - Skin/Abscess/Foreign Bdy MDM Narrative Medical decision making narrative: Discussed physical exam findings most c/w dermatitis, nontender erythematous papular rash to right anterior hip. Rx steroid. Advised supportive measures and signs/symptoms to go to the ER. Pt is appropriate for outpt treatment and f/u. Differential Diagnosis Differential diagnosis: Likely abscess of skin or subcutaneous tissue, viral exanthem, dermatophytosis, urticaria, herpes zoster, cellulitis, eczema, insect bites, impetigo and contact dermatitis Discharge Plan Discharge Clinical Impression: Dermatitis Patient Disposition: Home Condition: Stable Instructions: Antibiotic Form, General Allergic Reaction (ED) Additional Instructions: Take steroids as directed. Benadryl every 8 hours as needed for itching. Or you could take Zyrtec according to package directions Cool compresses to the sites of itching, avoid hot water. Avoid scratching to reduce the risk of infection Follow up with your primary care provider as needed in 1 week Go to the ER for worsening symptoms or concerns (lip, tongue, throat swelling/itching, trouble breathing etc) Patient Language: Cymro Prescriptions: New prednisone 20 mg tablet 20 mg PO DAILY Qty: 12 0RF Rx Instructions: take 3 tablets daily for 2 days, then 2 tablets daily for 2 days then 1 tablet daily for 2 days No Action dextroamphetamine-amphetamine 20 mg tablet 20 mg PO BID betamethasone valerate 0.1 % cream 1 applic topical TID PRN (Reason: rash) Qty: 15 0RF clotrimazole 1 % cream 1 applic topical TID PRN (Reason: rash) Qty: 15 0RF bupropion HCl 300 mg tablet extended release 24 hr 300 mg PO DAILY atorvastatin [Lipitor] 20 mg tablet 20 mg PO DAILY Qty: 90 1RF Follow-up/Referrals: Telly Hedrick APRN [Primary Care Provider, Internal Medicine] Time of Disposition: 13:03
== END 2025-03-24 13:06 | disposition home or self-care (01) ==
PROVIDERS: Emergency Provider Nurse Practitioner Family; PCP Nurse Practitioner
DX: L30.9 Dermatitis, unspecified (principal); F17.210 Nicotine dependence, cigarettes, uncomplicated; F17.290 Nicotine dependence, other tobacco product, uncomplicated; J44.9 Chronic obstructive pulmonary disease, unspecified; K21.9 Gastro-esophageal reflux disease without esophagitis; M19.90 Unspecified osteoarthritis, unspecified site; F32.A Depression, unspecified; Z86.718 Personal history of other venous thrombosis and embolism
CPT/HCPCS: 99213; G0463

== ENCOUNTER 2025-04-04 09:58 | Outpatient (CLI) | payer OTHER, SELFPAY ==
--- NOTE | ~2025-04-04 | CT_ITS ---
EXAMINATION: CT soft tissue neck wo con DATE: 04/04/2025 10:32 INDICATION: Localized swelling, mass and lump, neck. TECHNIQUE: Computed tomography (CT) of the neck was performed without intravenous contrast. Automated exposure control and iterative reconstruction technique were employed. The dose-length product was 423.24 mGy-cm. COMPARISON: None FINDINGS: There is a bleb at left lung apex. There is mild scarring at right lung apex. The major salivary glands are normal. There is an 11 mm nodule in right thyroid lobe, likely not clinically significant. There are no pathologically enlarged lymph nodes. There is moderate cervical spondylosis. There are changes of posterior fusion procedure in thoracic spine. IMPRESSION: 1. No abnormal lymphadenopathy. Reviewed, dictated and finalized at location E.
--- OUTSIDE RECORDS SUMMARY | 2025-04-04 11:45 | XMS_ITS | Clinical Summary ---
Author Organization [facility] Address [address] [place] [address] Care Team Providers Care Manual Tester Name Role Phone No, Physician Primary Care Provider [phone] Allergies No known active allergies Medications buPROPion XL (WELLBUTRIN XL) 300 mg 24 hr tablet Take 1 tablet (300 mg total) by mouth daily Active bm-0-sry-epa-fis h oil-vit D3 300-1,000-1,000 mg-mg-unit capsule Take [...] on file Legal Sex Female 3:56 PM RECORDS ANALYSIS MANAGER Gender Identity Not on file Sexual Orientation Not on file Obstetrics History Last Filed Vital Signs Vital Sign Reading Time Taken Comments Blood Pressure - - Pulse - - Temperature - - Respiratory Rate - - Oxygen Saturation - - Inhaled Oxygen Concentration - - Weight 68 kg (150 lb) 06/10/2023 9:18 AM RECORDS ANALYSIS MANAGER Height 160 cm (5' 3) 06/10/2023 9:18 AM RECORDS ANALYSIS MANAGER Body Mass Index 26.57 06/10/2023 9:18 AM RECORDS ANALYSIS MANAGER Plan of Treatment Health Maintenance Due Date [...] Td or Tdap) 01/07/2033 Insurance Care Teams Manual Tester Relationship Specialty Start Date End Date No, Physician PCP - General 04/23/23
--- OUTSIDE RECORDS SUMMARY | 2025-04-04 11:45 | XMS_ITS | Clinical Summary ---
Author Organization [facility] Address [facility] [place] [address] Care Team Providers Care Form Setter Supervisor Name Role Phone None, Provider MD Primary Care Provider Unavaila ble Allergies No known active allergies Medications vitamin D2, ergocalciferol, [address] UNITS capsule Take 1 capsule (50,000 Units total) by mouth every 7 days. 2 9 Active omeprazole 20 MG capsule TK 1 C PO QD 30 MIN TO 1 HOUR AC 2 9 Active valACYclovir 1 g tablet Take 1 tablet (1,000 mg total) by mouth daily. 2 9 Active dicyclomine 20 MG tablet TK 1 T PO QID PRN 0 Active triamcinolone 0.1 % creamIndications :Eruption cyst Apply topically 2 (two) times daily. 15 g 0 Active albuterol sulfate HFA 108 (90 Base) MCG/ACT inhalerIndicatio ns:Moderate asthma without complication, unspecified whether persistent (HHS/HCC) Inhale 2 puffs into the lungs every 4 (four) hours as needed. 1 Inhaler 1 0 Active BUPROPION XL 300 MG 24 hr tabletIndication s:Moderate episode of recurrent major depressive disorder (CMS/HCC) TAKE 1 TABLET(300 MG) BY MOUTH DAILY 90 tablet 0 Active amphetamine-dext roamphetamine (ADDERALL) 20 MG tablet Take 1 tablet (20 mg total) by mouth daily. Active Cholecalciferol (VITAMIN D3) 25 MCG (1000 UT) Cap Active Immunizations Immunization Administration Dates Next Due Influenza Adult (Generic) 06/13/2014,05/14/2014 Tdap (Boostrix) 01/07/2023 Social History Tobacco Use Types Packs/Day Years Used Date Smoking Tobacco: Every Day Smokeless Tobacco: Never Alcohol Use Standard Drinks/Week Comments No 0 (1 standard drink = 0.6 oz pur e alcohol) AUDIT-C Answer Date Recorded Frequency of Alcohol Consumption Never 02/27/2019 Average Number of Drinks Not on file 019 Frequency of Binge Drinking Not on file 02/12 Comments No Sex and Gender Information Value Date Recorded Sex Assigned at Not on file Legal Sex Female 6:30 PM CDT Gender Identity Not on file Sexual Orientation Not on file Last Filed Vital Signs Vital Sign Reading Time Taken Comments Blood Pressure 123/89 07/30/2023 12:56 AM ENGINEERING EXECUTIVE Pulse 94 07/30/2023 12:56 AM ENGINEERING EXECUTIVE Temperature 37.2 C (98.9 F) 07/30/2023 12:56 AM ENGINEERING EXECUTIVE Respiratory Rate 18 07/30/2023 12:56 AM ENGINEERING EXECUTIVE Oxygen Saturation 97% 07/30/2023 12:56 AM ENGINEERING EXECUTIVE Inhaled Oxygen Concentration - - Weight 63.5 kg (140 lb) 07/29/2023 7:55 PM ENGINEERING EXECUTIVE Height 160 cm (5' 3) 07/29/2023 7:55 PM ENGINEERING EXECUTIVE Body Mass Index 24.8 07/29/2023 7:55 PM ENGINEERING EXECUTIVE Plan of Treatment Health Maintenance Due Date Last Done Comments Colorectal Cancer Screening Colonoscopy (10 Years) 1965 Annual Physical 1968 Hepatitis C 1983 Pneumococcal Vaccine: 50+ Years (1 of 2 - PCV) 1984 Mammogram Screening 2005 Zoster Vaccines (1 of 2) 2015 COVID-19 Vaccine (2024-2 6 season) 2025 Influenza Adult (#1) 2025 06/13/2014, 05/14/2014 DTaP, Tdap and Td Vaccines ( 2 - Td or Tdap) 01/07/2033 01/07/2023 Hepatitis A Vaccines Aged Out No long er eligible based on patient's age to complete this topic Meningococcal B Vaccine Aged Out No l onger eligible based on patient's age to complete this topic Meningococcal Vaccine Aged Out No marianela gisela eligible based on patient's age to complete this topic RSV Immunizations Under 20 Months Aged Out No longer eligible b ased on patient's age to complete this topic Insurance [employer] Care Teams Form Setter Supervisor Relationship Specialty Start Date End Date None, Provider, PCP - General UNKNOWN PHYSICIAN SPECIALTY 07/29/23
--- OUTSIDE RECORDS SUMMARY | 2025-04-04 11:45 | XMS_ITS | Clinical Summary ---
Author Organization [facility] Address [address] [address] Phone Care Team Providers Care General Magistrate Name Role Phone Unavailable Primary Care Provider [...]
== END 2025-04-04 09:59 | disposition home or self-care (01) ==
PROVIDERS: PCP Nurse Practitioner; Visit Provider Nurse Practitioner
DX: R22.1 Localized swelling, mass and lump, neck (principal)
CPT/HCPCS: 70490

== ENCOUNTER 2025-05-23 12:30 | Outpatient (RCR) | payer OTHER, SELFPAY ==
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
--- NOTE | 2025-04-24 13:21 | OPREHPOC ---
Outpatient Therapy Plan of Care This is a Multidisciplinary Plan of Care that may contain components documented by all disciplines (PT, OT, and ST.) PT Problem 1 PT Problem #1 Knowledge Deficit PT Goal 1 Goal / Goal Update Pt will be independent in HEP Pt will verbalize understanding of diagnosis and prognosis Target Visit 10 PT Problem 2 PT Problem #2 Pain PT Goal 1 Goal / Goal Update Pt will report lowest rating in right shoulder 0/ 10 Target Visit 10 PT Goal 2 Goal / Goal Update Pt will report greatest pain level at 3/10 or less to improve ADLs and activities Target Visit 20 PT Problem 3 PT Problem #3 Impaired Range of Motion PT Goal 1 Goal / Goal Update Pt will show flexion BUE active ROM of 120 degrees for improved functional use Target Visit 10 PT Goal 2 Goal / Goal Update Pt will demonstate scaption of 100 degrees for improved functional use Target Visit 20
--- NOTE | 2025-05-03 09:17 | PCPTNOTE ---
Pt called to cx scheduled physical therapy appointment due not having a form of transportation this date.
--- NOTE | 2025-05-14 14:04 | PCPTNOTE ---
Pt canceled scheduled physical therapy appointment this date due to not having a ride.
--- NOTE | 2025-05-23 13:20 | PTOPDC ---
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 Still has a catch and is doing this just as often as previously. Pt reports is having trouble laying on her left side now, having immediate pain. States has been trying to put up [place] trees and lights, thinks she did something Reports laying on either shoulder beings her pain up to an 8/10. Reports shots helped and could sleep on that shoulder. noticed improvements: able to put her coats on without difficulty Reported Pain Level Pain Score 2,1: Self Report Assessment PT Clinical Summary Pt has attended 7 therapy sessions after cancelling 2 other sessions. Her ROM BUE is grossly the same is when initiating therapy, she shows less strength with testing than her initial evaluation, and also reports higher pain numbers than initial evaluation. She reports only improvement being she has greater ease with donning her coat. Unfortunately, she has not met any of her therapy goals and does not seem to have progressed with therapy. She was referred back to her provider for additional options for her shoulder pain and dysfunction. Thus patient is being discharged from therapy services for max benefit being met. Plan of Care PT Services Indicated No
== END 2025-05-23 13:34 | disposition home or self-care (01) ==
LOC: ANHHIPT 12:30
PROVIDERS: PCP Nurse Practitioner; Visit Provider Orthopaedic Surgery
DX: M75.81 Other shoulder lesions, right shoulder (principal); M75.82 Other shoulder lesions, left shoulder
CPT/HCPCS: 97014; 97110; 97112; 97140; 97162; 97530; 97750; G0283